=== PATIENT | female | born 1970 | race Caucasian/White ===

== ENCOUNTER 2022-04-23 13:59 | Emergency (ER) | payer BC ==
[2022-04-23] MEDS ORDERED: diphenhydrAMINE 50 MG/ML VIAL ONE (14:33)
[2022-04-23] MEDS ORDERED: Metoclopramide HCl 10 MG/2 ML VIAL ONE (14:33)
[2022-04-23] MEDS ORDERED: Ketorolac Tromethamine 30 MG/ML VIAL ONE (14:33)
[2022-04-23] MEDS ORDERED: Magnesium 2 GM/50 ML BAG (IN WATER) ONE (15:45)
[2022-04-23] MEDS ORDERED: methylPREDNISolone Sod Succ/PF 125 MG/2 ML VIAL ONE (15:46)
== END 2022-04-23 17:04 | disposition home or self-care (01) ==
LOC: CSHERS 13:59
DX: G43.909 Migraine, unspecified, not intractable, without status migrainosus (principal); E03.9 Hypothyroidism, unspecified
CPT/HCPCS: 96374; 96375; J1200; J1885; J2765; J2930; J3475

== ENCOUNTER 2022-10-18 13:35 | Emergency (ER) | payer BC ==
[~2022-10-18 13:35] MED LIST: Iopamidol 300 61% 100 ML VIAL FS ONE
[2022-10-18 15:56] LABS: #Basophils 0.1 10x3/uL (0.0-0.2); #Eosinphils 0.3 10x3/uL (0.0-0.5); #Monocytes 0.4 10x3/uL (0.0-1.1); #Neutrophils 4.2 10x3/uL (1.5-8.4); %Lymphocytes 28.9 % (18.0-47.0); %Monocytes 6.1 % (0.0-10.0); %Neutrophils 59.4 % (40.0-75.0); Hemoglobin 11.7 g/dL (12.0-15.5); Mean Corpuscular HGB CONC 33.4 g/dL (32.0-36.0); Mean Corpuscular Hemoglobin 28.7 pg (27.0-33.0); Mean Platelet Volume 11.2 fl (7.4-10.4); Platelet Count 264 10x3/uL (150-450); Red Blood Cell (RBC) Count 4.07 10x6/uL (3.90-5.03); White Blood Cell (WBC) Count 7.1 10x3/uL (3.5-10.5)
[2022-10-18 16:06] LABS: ALT (SGPT) 15 U/L (8-55); AST (SGOT) 19 U/L (5-34); Albumin 3.8 g/dL (3.5-5.0); Alkaline Phosphatase 55 U/L (40-110); Anion Gap 11 mmol/L (10-20); BUN (Urea Nitrogen) 16 mg/dL (9.8-20.1); Bilirubin, Total 0.2 mg/dL (0.2-1.2); Calc. Creatinine Clearance 0 mL/min (70-130); Carbon Dioxide 23 mmol/L (22-29); Chloride 105 mmol/L (98-107); Estimated GFR 80; Globulin 2.3 g/dL (2.4-3.5); Glucose 84 mg/dL (70-105); Potassium 3.7 mmol/L (3.5-5.1); Protein, Total 6.1 g/dL (6.0-8.3); Sodium 135 mmol/L (136-145)
== END 2022-10-18 17:00 | disposition home or self-care (01) ==
LOC: CSHERS 13:35
DX: R22.2 Localized swelling, mass and lump, trunk (principal); E03.9 Hypothyroidism, unspecified
CPT/HCPCS: 71260; 80053; 85025; Q9967

== ENCOUNTER 2023-04-03 14:31 | Outpatient (CLI) | payer OTHER | END 2023-04-03 14:32 | disposition home or self-care (01) | LOC: CSHRAD 14:31 | PROVIDERS: ATTEND Specialist | DX: M54.16 Radiculopathy, lumbar region (principal) | CPT/HCPCS: 72100 ==